=== PATIENT | female | born 1995 | race Caucasian/White ===

== ENCOUNTER 2023-11-12 10:30 | Inpatient (IN) | payer BC ==
[2023-11-13 00:43] VITALS: BMI 31.7
[2023-11-13 01:18] LABS: Hemoglobin 13.2 g/dL (12.0-15.5); Mean Corpuscular Hemoglobin 30.3 pg (27.0-33.0); Platelet Count 214 10x3/uL (150-450); RBC Distribution Width 12.8 % (11.5-14.5); Red Blood Cell (RBC) Count 4.35 10x6/uL (3.90-5.03); White Blood Cell (WBC) Count 10.3 10x3/uL (3.5-10.5)
[2023-11-13 01:34] LABS: Syphilis Antibody Nonreactive (Nonreactive); Syphilis Antibody Index 0.05 S/CO (<1.00 Non-Reactive)
[2023-11-13 01:35] LABS: HBSAg Index 0.24 S/CO (0-0.99); Hep B Surf Ag - L&D Non-Reactive S/CO (NonReactive)
[2023-11-13] MEDS ORDERED: Benzocaine-Menthol 82.5 ML CAN TOP PRN (04:51)
[2023-11-13] MEDS ORDERED: Lanolin Ointment 7 GM TUBE TOP PRN (04:51)
[2023-11-13] MEDS ORDERED: Bisacodyl 10 MG SUPP PR PRN (04:51)
[2023-11-13] MEDS ORDERED: hydrALAZINE 20 MG/ML VIAL SLOW IVP PRN (04:51)
[2023-11-13] MEDS ORDERED: Milk Of Magnesia 30 ML UDCUP PO PRN (04:51)
[2023-11-13] MEDS ORDERED: traMADol HCl 50 MG TAB PO PRN (04:51)
[2023-11-13] MEDS: Ibuprofen 800 MG TAB PO SCH (05:49)
[2023-11-13] MEDS: Oxytocin 30 units/NS 500 ML 500 ML ONE (06:04)
[2023-11-13] MEDS: Docusate 100 MG CAP PO SCH (07:45)
[2023-11-13] MEDS: Boostrix 0.5 ML (Tdap) VIAL (>/=7 yrs of age) IM ONE (07:46)
[2023-11-13] MEDS: Ferrous Sulfate 325 MG TAB PO SCH (07:46)
[2023-11-14 07:30] VITALS: BP 112/75; TEMP 97.9
== END 2023-11-14 11:25 | disposition home or self-care (01) | DRG 806 ==
LOC: CSHLD 11-13 00:35 → CSHPP 11-13 05:15
PROVIDERS: ADMIT Obstetrics & Gynecology; ATTEND Obstetrics & Gynecology
PROC: 10E0XZZ Delivery of Products of Conception, External Approach (ICD-10-PCS; principal; 2023-11-13)
PROC: 3E0234Z Introduction of Serum, Toxoid and Vaccine into Muscle, Percutaneous Approach (ICD-10-PCS; 2023-11-13)
DX: O48.0 Post-term pregnancy (principal); O36.0930 Maternal care for other rhesus isoimmunization, third trimester, not applicable or unspecified; Z37.0 Single live birth; Z3A.40 40 weeks gestation of pregnancy
CPT/HCPCS: 36415; 85027; 85461; 86780; 86850; 86900; 86901; 87340; 90384; 96372; 99285